=== PATIENT | male | born 1965 | race Caucasian/White ===

== ENCOUNTER 2023-07-12 07:31 | Outpatient (CLI) | payer OTHER, SELFPAY ==
--- NOTE | ~2023-07-12 | MR_ITS ---
MRI of the right shoulder Technique: Axial proton-density fat-sat images, coronal proton density fat-sat and T2 fat-sat images, and sagittal T1-weighted and T2 fat-sat images were acquired. Clinical History: Pain Findings: There is moderate to advanced AC joint degenerative change, probably productive change at t he distal clavicle and fluid in the joint space. Coracoclavicular, coracoacromial, and coracohumeral ligaments are intact. There is a 1.2 x 1.1 cm area of full-thickness tearing at the distal, anterior supraspinatus tendon i nsertion. Infraspinatus tendon demonstrates moderate tendinosis, without definite partial or full-thi ckness tear. Subscapularis tendon demonstrates moderate to advanced tendinosis, without definite part ial or full-thickness tear. Tendon of the long head of the biceps is probably intact. No labral tear evident. Inferior glenohumeral ligament is intact. No significant degenerative change of the glenohumeral join t. There is minimal fluid in the subacromial/subdeltoid bursa. No muscle atrophy or edema. Impression: 1.2 x 1.1 cm area of full-thickness tearing at the distal supraspinatus tendon insertion. Tendinosis of the infraspinatus and subscapularis tendons, as above.. Moderate to advanced AC joint degenerative change. Reviewed, dictated and finalized at [facility]. [employer] NETWORK ENGINEER Impression: 1.2 x 1.1 cm area of full-thickness tearing at the distal supraspinatus tendon insertion. Tendinosis of the infraspinatus and subscapularis tendons, as above.. Moderate to advanced AC joint degenerative change.
== END 2023-07-12 07:32 | disposition home or self-care (01) ==
PROVIDERS: PCP Orthopaedic Surgery; Visit Provider Orthopaedic Surgery
DX: M19.011 Primary osteoarthritis, right shoulder (principal); M75.121 Complete rotator cuff tear or rupture of right shoulder, not specified as traumatic
CPT/HCPCS: 73221

== ENCOUNTER 2023-08-01 12:37 | Outpatient (CLI) | payer OTHER, SELFPAY ==
--- NOTE | ~2023-08-01 | MR_ITS ---
EXAMINATION: MR shoulder LT wo con DATE: 08/01/2023 13:24 INDICATION: Chronic left shoulder pain TECHNIQUE: Magnetic resonance imaging (MRI) of the left shoulder was performed without intravenous co ntrast. Sequences included axial PD-weighted FS FSE, coronal oblique PD-weighted FS FSE, coronal obli que T2-weighted FS FSE, sagittal PD-weighted FS FSE, and sagittal T1-weighted SE. COMPARISON: None. FINDINGS: Coracoacromial arch: The acromion undersurface is curved in morphology (type II). The coracoacromial ligament is normal. M oderate acromioclavicular osteoarthritis. Rotator cuff: Moderate supraspinatus and mild infraspinatus tendinopathy. There is a small full-thickness tear cachorro uring 8 mm AP and 1 cm medial to lateral along the greater tuberosity footplate of the conjoined port ion of the supraspinatus and infraspinatus tendons. This is superimposed over a more extensive partia l thickness articular sided which extends to involve the more anterior supraspinatus and posterior in fraspinatus tendons. This portion of the tear measures approximately 2.5 cm medial collateral and joanie roximately 3.5 cm AP midway between the level of the greater tuberosity footplate and the apex of the humeral head. The teres minor tendon is normal. Mild subscapularis tendinopathy without tear. Normal rotator cuff muscle bulk and signal. Biceps tendon, glenoid labrum and glenohumeral cartilage: Mild tendinopathy of the long head of the biceps tendon centered at the junction of the intra-articul ar and extra-articular portions of the tendon. There is a tear of the 5:30-6:30 position of the infer ior glenoid labrum. There is some adjacent deep chondral fissuring with underlying subarticular cystl antonio changes along the 5:30-4:00 position of the anteroinferior rim of the glenoid. There is an additi onal small tear at the 12:00-11:00 position of the superior glenoid labrum. Small region of deep amy dral ulceration without degenerative subchondral changes at the anterosuperior rim of the glenoid. Ca rtilage at the humeral head appears relatively preserved. Fluid: Small glenohumeral joint effusion which extends into the deep subscapular recess. There is small amou nt of fluid in the subacromial/subdeltoid bursa which could be related to bursitis or more likely dec ompression of the glenohumeral joint fluid through the full-thickness rotator cuff tear. There is add itional small amount of fluid along with mild synovitis at the long head biceps tendon sheath consist ent with mild bicipital tenosynovitis. No loose osteochondral bodies. Bones: Bone alignment is normal. No fracture or pathologic marrow replacing process. There are cystic change s at the lesser tuberosity and superior facet of the greater tuberosity likely related to chronic rot ator cuff disease. IMPRESSION: 1. Moderate supraspinatus and mild infraspinatus tendinopathy with moderate-sized mild severity artic ular sided tear of both tendons with a small full-thickness component to the tear at the insertion of the conjoined portion of the tendons. 2. Mild glenohumeral osteoarthritis with high-grade chondromalacia along the anterior rim of the lilo oid and with tears of the superior and inferior glenoid labrum. 3. Moderate acromioclavicular osteoarthritis. 4. Mild bicipital tenosynovitis with mild tendinopathy without tear of the long head biceps tendon. Reviewed, dictated and finalized at [facility]. EATION SUPERVISOR IMPRESSION: 1. Moderate supraspinatus and mild infraspinatus tendinopathy with moderate-siz ed mild severity articular sided tear of both tendons with a small full-thickne ss component to the tear at the insertion of the conjoined portion of the tendo ns. 2. Mild glenohumeral osteoarthritis with high-grade chondromalacia along the an terior rim of the glenoi
== END 2023-08-01 12:38 | disposition home or self-care (01) ==
PROVIDERS: PCP Family Medicine; Visit Provider Orthopaedic Surgery
DX: M19.012 Primary osteoarthritis, left shoulder (principal); M75.22 Bicipital tendinitis, left shoulder
CPT/HCPCS: 73221